=== PATIENT | female | born 1995 | race Caucasian/White ===

== ENCOUNTER 2019-03-09 12:05 | Emergency (ER) | payer OTHER ==
[~2019-03-09] VITALS: Ht 162.6 cm; Wt 71.4 kg
[2019-03-09 12:19] VITALS: BP 120/64
--- NOTE | 2019-03-09 12:23 | NUR ---
BIB MOTHER. PT AAO X4 C/O RT HAND MIDDLE FINGER SWOLLEN AND PAIN 04/29 X 2 WEEKS. PT STATES THAT SHE PULLED A HANG NAIL ON R MIDDLE FINGER CAUSING THE SWELLING. PT DENIES DRAINAGE, FEVER, SOB. +MOVEMENT, +CIRCULATION +SENSATION TO R MIDDLE FINGER. HOB UP. BED SIDE RAILS UP X1. ON LOW BED POSITION, LOCKED. ER TO ASSESS PT.
--- NOTE | 2019-03-09 12:23 | NUR ---
PATIENT AMBULATED TO ER BED 6. RN EVALUATING AT BEDSIDE.
[2019-03-09] MEDS ORDERED: LIDOCAINE 2% 1000 MG/50 ML VIAL INJ ONE (13:05)
--- NOTE | 2019-03-09 13:41 | NUR ---
Dr. Rucker evaluating patient at bedside.
--- NOTE | 2019-03-09 14:08 | NUR ---
Rosario grover in [facility] - 03/09/19 at [address] PHILLIPS AT [facility] FOR PT PREP FOR I&D.
--- NOTE | 2019-03-09 14:08 | NUR ---
DR PHILLIPS AT BEDSIDE FOR FOR I&D PROCEDURE. PT TOLERATING WELL
[2019-03-09 14:32] VITALS: BP 125/65
--- NOTE | 2019-03-09 14:32 | NUR ---
Patient discharged with v/s stable. Written and verbal after care instructions given and explained. Patient verbalized understanding. Ambulatory with steady gait. All questions addressed prior to discharge. Advised to follow up with PMD.
== END 2019-03-09 14:32 | disposition home or self-care (01) ==
LOC: MED 12:05
DX: L03.011 Cellulitis of right finger (principal)
CPT/HCPCS: 10060; 81002; 81025; 87070; 99283; J2001; 87186